=== PATIENT | female | born 1995 | race Caucasian/White ===

== ENCOUNTER 2024-12-18 00:59 | Emergency (ER) | payer OTHER ==
[2024-12-18] MEDS ORDERED: ROCURONIUM 50 MG/5 ML VIAL IV ONE (01:00)
[2024-12-18] MEDS ORDERED: ETOMIDATE 20 MG/10 ML VIAL IV ONE (01:00)
[2024-12-18] MEDS ORDERED: NA CHLORIDE 0.9% 1,000 ML IV ONE (01:00)
[2024-12-18] MEDS ORDERED: Calcium Chloride 10% INJ SYR IV ONE (01:00)
[2024-12-18] MEDS ORDERED: NOREPINEPHRINE BITARTRATE/D5W 4 MG/250 ML BAG IV ONE ×5 (01:07→11:57)
[2024-12-18] MEDS ORDERED: ALBUMIN HUMAN 25% 200 ML IV ONE (01:17)
[2024-12-18] MEDS ORDERED: ACETAMINOPHEN 650MG/RECT SUPP PR ONE (01:22)
[2024-12-18] MEDS ORDERED: ACETAMINOPHEN 325 MG/SUPP PR ONE (01:23)
[2024-12-18 01:49] LABS: Absolute Lymphocytes (CBC) 0.9 K/uL (0.7-4.9); Hematocrit 25.7 % (36.0-45.0); Hemoglobin 8.8 g/dL (12.0-15.0); MCH 30.7 pg (27.0-35.0); MCHC 34.3 g/dL (32.0-36.0); MCV 89.6 fL (80-100); MPV 7.3 fL (7.6-11.3); Nucleated RBC Absolute Count 0.0 (0-0); Nucleated Red Blood Cells % 0.3 % (0-0); PT Prothrombin Time 14.6 SECONDS (10-13.0); Protime INR 1.3; RBC Red Blood Cell Count 2.86 M/uL (3.86-4.86); White Blood Count 3.00 thou/uL (4.3-10.9)
[2024-12-18 01:54] LABS: Influenza A Ag Negative; Influenza B Ag Negative
[2024-12-18 01:55] LABS: SARS-CoV-2 Antigen Rapid Res Negative (Negative)
[2024-12-18 02:06] LABS: ALT/SGPT 23 U/L (13-56); AST/SGOT 18 U/L (15-37); Albumin 3.3 g/dL (3.4-5.0); Albumin/Globulin Ratio 0.9 (1.1-1.8); Alkaline Phosphatase 130 U/L (45-117); Anion Gap 15.4 mEq/L (5.0-15.0); BUN Blood Urea Nitrogen 52 mg/dL (7-18); Globulin 3.7 g/dL (2.3-3.5); Glucose Level 149 mg/dL (74-106); Magnesium 1.4 mg/dL (1.6-2.4); NT PRO-BNP 1298 pg/mL (<125); Potassium 3.4 mEq/L (3.5-5.1); Troponin High Sensitivity 20.9 pg/mL (<58.9)
[2024-12-18 02:07] LABS: Bilirubin Indirect, Calculated 0.1 mg/dL (0.2-0.8)
[2024-12-18 02:09] LABS: Lipase 56 U/L (13-75); Thyroid Stimulating Hormone 2.130 uIU/mL (0.358-3.740)
[2024-12-18] MEDS ORDERED: VANCOMYCIN 1 GM/VIAL ONE (02:09)
[2024-12-18] MEDS ORDERED: ONDANSETRON 4 MG/2 ML VIAL ONE (02:09)
[2024-12-18] MEDS ORDERED: NA CHLORIDE 0.9% 500 ML ONE (02:09)
[2024-12-18] MEDS ORDERED: NA CHLORIDE 0.9% 100 ML ONE (02:09)
[2024-12-18] MEDS ORDERED: CEFAZOLIN SODIUM 2 GM/VIAL ONE (02:10)
[2024-12-18 02:15] LABS: HCG, Quantitative 7 mIU/mL (1-3)
[2024-12-18 02:24] LABS: Arterial Blood Carboxyhemoglob 0.3 % (0.0-1.5); Blood Gas Inspired Oxygen 50.0 %; Blood Gas Oxyhemoglobin 98.3 % (94.0-97.0); Blood O2 Saturation 99.7 % (92.0-98.5)
[2024-12-18] MEDS ORDERED: METOPROLOL TARTRATE 5 MG/5 ML INJ IV ONE (02:30)
[2024-12-18] MEDS ORDERED: SCOPOLAMINE HYDROBROMIDE PATCH TD ONE (02:31)
[2024-12-18] MEDS ORDERED: MIDAZOLAM HCL 5 ML ONE (02:50)
[2024-12-18] MEDS ORDERED: MIDAZOLAM HCL IN 0.9 % NACL/PF 100 MG/100 ML BAG IVPB ONE (02:54)
--- NOTE | 2024-12-18 03:06 | RAD REPORT ---
INDICATION: AMS COMPARISON: No existing relevant imaging studies are available TECHNIQUE: Unenhanced CT of the chest, abdomen, and pelvis was performed per protocol. Multiplanar reconstructio ns were provided. Dose reduction techniques were utilized for this exam including automated exposure control, adjustmen ts to mA and/or kV according to patient's size, and the use of iterative reconstruction techniques. FINDINGS: Lack of intravenous contrast limits evaluation of the viscera and vasculature. CHEST: SUPPORT DEVICES: Endotracheal tube terminates above the tom. Enteric tube terminates within the st omach. Right-sided central venous catheter terminates within the upper right atrium. HEART: Normal in size. No coronary arterial calcifications. No pericardial effusion or thickening. AORTA: Thoracic aorta normal in course and caliber. ADENOPATHY: No pathologic intrathoracic or axillary adenopathy. LUNGS: Bilateral lower lobe dependent atelectasis. Lungs otherwise grossly clear. No large pleural ef fusion or pneumothorax. ABDOMEN / PELVIS: LIVER: Unremarkable. SPLEEN: Enlarged measuring up to 14 cm. PANCREAS: Unremarkable. ADRENALS: Unremarkable. KIDNEYS: Bilateral renal cortical atrophy. No hydronephrosis. GALLBLADDER: Surgically absent. VESSELS: Aortoiliac system normal in course and caliber. BOWEL: Submucosal fatty infiltration of the ascending colon, nonspecific although can be seen with ch ronic inflammation. Moderate amount of stool throughout the remaining colon. No bowel obstruction. APPENDIX: Normal. FLUID: No free fluid or abnormal fluid collection. ADENOPATHY: No pathologic adenopathy. BLADDER: Decompressed around a Dinh catheter bulb. PELVIS: Uterus and adnexa are unremarkable. BONES: No acute bony abnormality. SOFT TISSUES: Unremarkable. IMPRESSION: 1. No acute findings within the chest, abdomen or pelvis. 2. Splenomegaly. 3. Bilateral renal atrophy. Electronically signed by: Medardo Dorsey DO 12/18/2024 02:22 AM CDT NR Due to temporary technical issues with the PACS[employer] reporting system, reports are being gris d by the in-house radiologist without review as a courtesy to ensure prompt reporting the interpreting radiologist is fully responsible for the content of the report. Transcribed Date/Time: 12/18/2024 3:06 AM
--- NOTE | 2024-12-18 03:06 | RAD REPORT ---
INDICATION: CONFUSED COMPARISON: No existing relevant imaging studies are available TECHNIQUE: Unenhanced CT of the head was performed per protocol. Dose reduction techniques were utilized for this exam including automated exposure control, adjustmen ts to mA and/or kV according to patient's size, and the use of iterative reconstruction techniques. FINDINGS: ACUTE INFARCTION: No. HEMORRHAGE: No. MASS: No. BRAIN: Huang-white matter differentiation is maintained. VENTRICLES / EXTRA-AXIAL SPACES: No hydrocephalus. BONES: Unremarkable. PARANASAL SINUSES: Mild mucosal thickening within the ethmoid sinuses. IMPRESSION: No acute intracranial abnormality. Electronically signed by: Medardo Dorsey DO 12/18/2024 02:22 AM CDT RP NR Due to temporary technical issues with the PACS/[employer] reporting system, reports are being gris d by the in-house radiologist without review as a courtesy to ensure prompt reporting the interpreting radiologist is fully responsible for the content of the report. Transcribed Date/Time: 12/18/2024 3:06 AM
[2024-12-18] MEDS ORDERED: LIDOCAINE 1% 20 ML MDV ONE (04:04)
[2024-12-18 04:25] LABS: METHAMPHETAM NEGATIVE (NEGATIVE); Sqamous Epithelial 20-50 /HPF (None Seen); THC Cannibis NEGATIVE (NEGATIVE); Urine Micro Reflex YN NO BILL MICROSCOPIC; Urine WBC Clump Rare /HPF (None Seen)
[2024-12-18 05:27] LABS: Color of Supernate Not Xanthochromic (Not Xantho); Color of fluid Colorless (COLORLESS)
[2024-12-18 05:29] VITALS: O2SAT 100
[2024-12-18 05:33] LABS: Fluid Total Cells Count ND
[2024-12-18 06:00] LABS: Color of Supernate Not Xanthochromic (Not Xantho); Color of fluid Colorless (COLORLESS); Fluid Total Volume 8 ml
--- NOTE | 2024-12-18 06:04 | ER ---
Nurse's Notes [facility] Name: Elgin Mae Age: 29 yrs Sex: Female : 1995 Arrival Date: 12/18/2024 Time: 00:59 Bed 3 Private MD: Diagnosis: Fever, sepsis, altered mental status, respiratory distress, generalized weakness, lactic acidosis Presentation: 12/18 01:00 Chief complaint: EMS states: ESRD with at home hemodialysis. unknown date of last lg3 treatment. pt combative on EMS arrival to scene. pt began vomiting and became unresponsive. 2mg IN Narcan administered with no change. Coronavirus screen: At this time, unable to obtain information related to travel outside the [place] Ebola Screen: No symptoms or risks identified at this time. Initial Sepsis Screen: Does the patient meet any 2 criteria? RR > 20 per min. Temp <36.0*C (96.8*F)) or > 38.3*C (100.9*F). Altered Mental Status. HR > 90 bpm. Yes Does the patient have a suspected source of infection? No. Patient's initial sepsis screen is negative. Risk Assessment: Do you want to hurt yourself or someone else? Unable to obtain. Onset of symptoms is unknown. 01:00 Method Of Arrival: EMS: [facility] lg3 01:00 Acuity: KENDRA 1 lg3 Triage Assessment: 01:00 General: Appears distressed, Behavior is unresponsive. Pain: Unable to use pain scale. lg3 Patient is unresponsive. EENT: No deficits noted. Neuro: Oneil Agitation-Sedation Scale (RASS): -5 Unarousable Level of Consciousness is unresponsive. Cardiovascular: Capillary refill < 3 seconds Clubbing of nail beds is absent JVD is present Patient's skin is warm and dry. Rhythm is sinus tachycardia. Respiratory: Respiratory effort is shallow, weak, Respiratory pattern is tachypnea Breath sounds are clear bilaterally. GI: Abdomen is round non-distended, Pt is actively vomiting bile. : No deficits noted. Derm: Skin is intact, is healthy with good turgor, Skin is dry, Skin is pale, Skin temperature is hot. Musculoskeletal: No deficits noted. 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 - Infectious Disease History:: Denies. - Social history:: Smoking status: unknown. - Family history:: not pertinent. Screenin:00 [facility] ED Fall Risk Assessment (Adult) History of falling in the last 3 months, lg3 including since admission No falls in past 3 months (0 pts) Confusion or Disorientation Yes (5 pts) Intoxicated or Sedated No (0 pts) Impaired Gait No (0 pts) Mobility Assist Device Used No (0 pt) Altered Elimination No (0 pt) Score/Fall Risk Level 3 or more points = High Risk Oriented to surroundings, Maintained a safe environment, Educated pt \T\ family on fall prevention, incl call for assistance when getting out of bed, Assessed \T\ reinforced patient's understanding of fall precautions. Abuse screen: Denies threats or abuse. Denies injuries from another. Nutritional screening: No deficits noted. Tuberculosis screening: No symptoms or risk factors identified. Assessment: 01:00 General: see triage assessment. lg3 03:00 General: per significant other, PT recently traveled to [place] for medical . lg3 provider notified. 03:28 General: Appears in no apparent distress. Neuro: Oneil Agitation-Sedation Scale lg3 (RASS): -5 Unarousable Level of Consciousness is unresponsive. Respiratory: Ventilator assessment: ET Tube: 7.5 HOB > 30 degrees. Oral care provided. Suction provided. 04:54 Reassessment: Patient appears in no apparent distress at this time. No changes from lg3 previously documented assessment. Patient and/or family updated on plan of care and expected duration. Pain level reassessed. 06:24 Reassessment: Patient appears in no apparent distress at this time. No changes from lg3 previously documented assessment. Patient and/or family updated on plan of care and expected duration. Pain level reassessed. 07:12 General: Appears in no apparent distress. Behavior is unresponsive. Neuro: Level of ap3 Consciousness is unresponsive. Respiratory: Airway via oral intubation. 08:45 Reassessment: Dr. Omer at bedside. ap3 10:48 Reassessment: Pt moving both arms and bucking ventilator, see MAR for med given. Dr. marilyn Mata (nephrology at bedside).. 11:40 General: Appears in no apparent distress. comfortable, Behavior is unresponsive. Neuro: ap3 Level of Consciousness is unresponsive. Respiratory: Airway via oral intubation. 18:51 Reassessment: Preliminary blood culture reports gram neg rods in all 4 bottles. Judith erwin at [facility] ICU notified, reports faxed to [phone]. Vital Signs: 01:00 BP 98 / 65; Pulse 166; Resp 21 S; Temp 104.4(A); Pulse Ox 96% on R/A; Height 5 ft. 6 lg3 in. ; 01:37 Weight 74.84 kg; ha1 02:30 BP 113 / 61; Pulse 130; Resp 17; Temp 102.1(Ca); Pulse Ox 100% on ETT vent; lg3 03:00 BP 85 / 43; Pulse 104; Resp 20 A; Temp 101.2(Ca); Pulse Ox 100% on ETT vent; lg3 03:30 BP 74 / 42; Pulse 95; Resp 20 A; Temp 101.3; Pulse Ox 100% on ETT vent; lg3 03:45 BP 124 / 87; Pulse 100; Resp 19 A; Temp 101.4(Ca); Pulse Ox 100% on ETT vent; lg3 04:05 BP 127 / 86; Pulse 99; Resp 20 A; Temp 100.8(Ca); Pulse Ox 100% on ETT vent; lg3 04:30 BP 114 / 82; Pulse 99; Resp 20 A; Temp 100.8(Ca); Pulse Ox 100% on ETT vent; lg3 05:00 BP 122 / 79; Pulse 93; Resp 17 A; Temp 100.8(Ca); Pulse Ox 100% on ETT vent; lg3 05:30 BP 129 / 82; Pulse 93; Resp 17 A; Temp 100.8(Ca); Pulse Ox 100% on ETT vent; lg3 06:00 BP 133 / 83; Pulse 93; Resp 16 A; Temp 100.7(Ca); Pulse Ox 100% on ETT vent; lg3 06:30 BP 128 / 78; Pulse 93; Resp 16 A; Temp 100.7(Ca); Pulse Ox 100% on ETT vent; lg3 07:13 BP 116 / 73; Pulse 96; Resp 16; Temp 100.8(Ca); Pulse Ox 100% on ETT vent; ap3 07:42 BP 117 / 75; Pulse 95; Resp 16; Temp 100.8(Ca); Pulse Ox 100% on ETT vent; ap3 08:20 BP 124 / 82; Pulse 92; Resp 16 A; Pulse Ox 100% on ETT vent; ap3 08:58 BP 108 / 73; Pulse 89; Resp 16 A; Pulse Ox 100% on ETT vent; ap3 09:20 BP 112 / 75; Pulse 87; Resp 16 A; Temp 100.7(Ca); Pulse Ox 100% on ETT vent; ap3 09:40 BP 117 / 80; Pulse 86; Resp 16 A; Pulse Ox 100% on ETT vent; ap3 09:47 BP 119 / 82; Pulse 88; Resp 16 A; Pulse Ox 100% on ETT vent; ap3 09:55 BP 100 / 64; Pulse 90; Resp 16 A; Pulse Ox 100% on ETT vent; ap3 10:34 BP 101 / 69; Pulse 86; Resp 16 A; Pulse Ox 100% on ETT vent; ap3 11:05 BP 104 / 71; Pulse 85; Resp 16 A; Pulse Ox 100% on ETT vent; ap3 11:39 BP 112 / 72; Pulse 86; Resp 16 A; Temp 100.7(Ca); Pulse Ox 100% on ETT vent; ap3 12:05 BP 116 / 76; Pulse 86; Resp 16 A; Temp 100.5(Ca); Pulse Ox 100% on ETT vent; ap3 12:35 BP 119 / 77; Pulse 85; Resp 16 A; Pulse Ox 100% on ETT vent; ap3 12:55 BP 121 / 78; Pulse 83; Resp 16 A; Pulse Ox 100% on ETT vent; ap3 13:15 BP 129 / 90; Pulse 93; Resp 16 A; Pulse Ox 100% on ETT vent; ap3 [place] Coma Score: 03:43 Eye Response: spontaneous(4). Motor Response: localizes pain(5). Verbal Response: sp4 incomprehensible(2). Total: 11. ED Course: 01:00 Arm band placed on right wrist. lg3 01:00 Patient has correct armband on for positive identification. Placed in gown. Bed in low lg3 position. Call light in reach. Side rails up X2. Client placed on continuous cardiac and pulse oximetry monitoring. NIBP monitoring applied. monitoring analyst on. 01:00 One-on-one care X 45 minutes. lg3 01:00 Inserted saline lock: 20 gauge in left antecubital area, using aseptic technique. Blood lg3 collected. Flushed with 10 mL NS. 01:00 Inserted saline lock: 18 gauge in right antecubital area, using aseptic technique. lg3 Blood collected. Flushed with 10 mL NS. 01:02 Patient arrived in ED. vk 01:14 Assisted provider with intubation using 7.5 mm ETT via oral route. ET tube secured at lg3 22cm at the teeth. Set up intubation tray. Intubated by Dutch Trinidad MD Placement verified by CO2 detector w/ + color change, auscultating bilateral breath sounds, CXR, Patient tolerated well. Dinh cath inserted, using sterile technique, 16 Fr., by research animal attendant, balloon inflated, to gravity drainage, 16Fr. OG tube placed. verified by return of gastric contents and CXR. 01:15 Dutch Trinidad MD is Attending Physician. sp4 01:36 Telma Kaur, LASHAUN is Primary Nurse. lg3 01:43 Triage completed. lg3 01:48 Abdomen 1 View (KUB) In Process Unspecified. EDMS 01:49 XRAY Chest (1 view) In Process Unspecified. EDMS 01:52 ABG Sent. lg3 01:52 Salicylate Sent. lg3 01:52 Acetaminophen Sent. lg3 01:52 Alcohol Level Sent. lg3 01:52 T4 Free Sent. lg3 01:52 TSH Sent. lg3 01:52 Lipase Sent. lg3 01:52 COVID-19 Ag + Flu A+B Ag Sent. lg3 01:52 COVID-19 Ag + Flu A+B Ag Sent. lg3 01:52 CK Sent. lg3 01:52 Lactate w/ 2H reflex if indic. Sent. lg3 01:52 Blood Culture Adult (2) Sent. lg3 01:54 Basic Metabolic Panel Sent. lg3 01:54 CBC with Diff Sent. lg3 01:54 LFT's Sent. lg3 01:54 Magnesium Sent. lg3 01:54 NT PRO-BNP Sent. lg3 01:54 Troponin HS Sent. lg3 02:06 CT Head Brain wo Cont In Process Unspecified. EDMS 02:06 CT Chest Abdomen Pelvis W/O Contrast In Process Unspecified. EDMS 02:15 One-on-one care X 45 minutes. lg3 02:15 Cleaned of incontinence. Linen changed. lg3 03:20 Assisted provider with central line placement. Set up central line tray. Triple lumen lg3 line placed in left internal jugular. Line placed by Dutch Trinidad MD Placement verified by CXR, blood return, Blood was collected. Patient tolerated well. Before procedure, did Practitioner(s) obtain informed consent? Yes. Patient \T\ family education about procedure, CLABSI prevention and S/S of infection? Yes. Time-out/Briefing performed prior to start of procedure? Yes. Was handwashing/sanitizing done immediately prior to procedure? Yes. Was patient positioned to in a way to prevent air embolism? Yes. Was procedure site sterilized? Yes, with chlorhexidine. Was the site allowed to dry? Yes. Was local anesthetic and/or sedation utilized? Yes. During the procedure, did the Practitioner(s) maintain a sterile field? Yes. Were unused ports clamped during insertion? Yes. Was a 2nd qualified MD obtained after 3 unsuccessful insertion attempts? No. Was blood aspirated from each lumen? Yes. After the procedure, did the Practitioner(s) clean the site and apply a sterile dressing? Yes. 03:21 One-on-one care X 30 minutes. lg3 03:49 Chest Single View XRAY In Process Unspecified. EDMS 04:16 Assist provider with lumbar puncture: Set up LP tray. Performed by Dutch Trinidad MD lg3 CSF is clear. Procedure was successful. Patient tolerated well. 04:17 One-on-one care X 30 minutes. lg3 04:17 Cleaned of incontinence. Linen changed. lg3 06:02 Kam Omer MD is Hospitalizing Provider. sp4 07:11 US Pelvis Complete In Process Unspecified. EDMS 08:45 Provided Education on: education given to family at bedside on medications. ap3 11:14 initiated a transfer with Noah from the [facility]. eb 11:23 Attending Physician role handed off by Dutch Trinidad MD sp3 11:23 Nathalie Lyons MD is Attending Physician. sp3 12:[address] Little the locomotive crane engineer registered radiation therapist for [facility] with Dr. Lyons for eb patient transfer consultation. 12:18 administrative approval given by Noah Carter Rn/ patient has been accepted to [facility] ICU bed 209/ Dr. Shay Little has accepted the patient in transfer/ report to be called to [phone]. 13:34 Patient transferred, IV remains in place. ap3 Administered Medications: 01:12 Drug: Etomidate IVP 20 mg IVP once Route: IVP; Site: left antecubital; lg3 02:37 Follow up: Response: No adverse reaction; RASS: Unarousable (-5) lg3 01:12 Drug: Calcium Chloride IVP 1 grams IVP once Route: IVP; Site: left antecubital; lg3 02:37 Follow up: Response: No adverse reaction lg3 01:12 Drug: Sodium Bicarbonate IVP 1 amp IVP once; (50 mL); equals 50 mEq Route: IVP; Site: lg3 left antecubital; 02:36 Follow up: Response: No adverse reaction lg3 01:13 Drug: Rocuronium IVP 100 mg IVP once Route: IVP; Site: left antecubital; lg3 02:37 Follow up: Response: No adverse reaction; RASS: Unarousable (-5) lg3 01:13 Drug: Calcium Chloride IVP 1 grams IVP once Route: IVP; Site: right antecubital; lg3 02:37 Follow up: Response: No adverse reaction lg3 01:13 Drug: Sodium Bicarbonate IVP 50 mEq IVP once Route: IVP; Site: right antecubital; lg3 02:36 Follow up: Response: No adverse reaction lg3 01:36 Drug: Acetaminophen IN Suppository 650 mg IN once Route: IN; vc1 03:28 Follow up: Response: No adverse reaction; Marked relief of symptoms; Temperature is lg3 decreased 01:36 Drug: Acetaminophen IN Suppository 325 mg IN once Route: IN; vc1 03:28 Follow up: Response: No adverse reaction lg3 01:54 Drug: Propofol IV 5 mcg/kg/min IV at calculated rate See Administration Instructions; lg3 Standard concentration 1000 mg / 100 mL; Recommended max rate 50 mcg/kg/min; Titrate 5 mcg/kg/min every 5 minutes to achieve goal (see titration policy); Goal parameter RASS score 0 to -2 Route: IV; Rate: calculated rate; Site: left antecubital; 08:22 Follow up: Rate change 18 mcg/kg/min; dr omer made rate change from 20mcg/kg/min to ap3 18mcg/kg/min when at bedside 13:37 Follow up: IV Status: Infusion continued upon transfer ap3 01:55 Drug: NS 0.9% IV 1000 ml IV at 125 ml/hr once; to be given at 125 ml / hour Route: IV; lg3 Rate: 125 ml/hr; Site: right antecubital; 13:36 Follow up: IV Status: Completed infusion; IV Intake: 1000ml ap3 02:08 Drug: Albumin IVPB 50 grams 100 ml IVPB once; (Note: Albumin 25% concentration) Volume: lg3 100 ml; Route: IVPB; Site: right antecubital; 02:36 Follow up: Response: No adverse reaction; IV Status: Completed infusion; IV Intake: lg3 100ml 02:14 Drug: Ondansetron IVP 4 mg IVP once; over 2 minutes Route: IVP; Site: right antecubital;lg3 02:37 Follow up: Response: No adverse reaction lg3 02:35 Drug: Metoprolol IVP 5 mg IVP once; Hold for SBP <100 or HR <60. Route: IVP; Site: lg3 right antecubital; 03:27 Follow up: Response: No adverse reaction; Marked relief of symptoms lg3 02:36 Drug: Cefepime IVPB 2 grams IVPB at 200 ml/hr once over 30 mins; (mix in NS 100 mL) lg3 Route: IVPB; Rate: 200 ml/hr; Infused Over: 30 mins; Site: right antecubital; 02:53 Follow up: Response: No adverse reaction; IV Status: Completed infusion; IV Intake: lg3 100ml 02:52 Drug: Midazolam IVP or IV 5 mg IVP once Route: IVP; Site: right antecubital; lg3 03:27 Follow up: Response: No adverse reaction lg3 03:15 Drug: vancoMYCIN IVPB 2 grams IVPB at calculated rate once Route: IVPB; Rate: lg3 calculated rate; Site: left antecubital; 05:15 Follow up: Response: No adverse reaction; IV Status: Completed infusion; IV Intake: lg3 500ml 03:18 Drug: Midazolam IVP or IV 0.01 mg/kg/h IV at ml/hr See Administration Instructions; lg3 (Standard concentration: 100 mg / 100 mL NS); Recommended max rate 0.1 mg/kg/hr; Titrate 0.01 mg/kg/hr as often as every 30 minutes to achieve goal (see titration policy); Goal parameter RASS 0 to -2 Route: IV; Rate: ml/hr; Site: right antecubital; 13:36 Follow up: IV Status: Infusion continued upon transfer ap3 03:27 Drug: Midazolam IVP or IV 5 mg IVP once Route: IVP; Site: right antecubital; lg3 04:00 Follow up: Response: No adverse reaction lg3 03:40 Drug: Norepinephrine IV 0.1 mcg/kg/min IV at calculated rate See Administration lg3 Instructions; (Standard concentration 4 mg / 250 mL D5W); Recommended max rate 3 mcg/kg/min; Titrate 0.05 mcg/kg/min as often as every 5 minutes to achieve goal (see titration policy); Goal parameter MAP greater than 65 mmHg. Route: IV; Rate: calculated rate; Site: left jugular; 08:57 Follow up: Rate change 0.3 mcg/kg/min ap3 09:47 Follow up: BP 119 / 82; Pulse 88 bpm; Resp 16 bpm Assisted; Pulse Ox 100% FiO2 Vent; ap3 Rate change 0.2 mcg/kg/min 13:36 Follow up: IV Status: Infusion continued upon transfer ap3 03:40 Drug: NS 0.9% IV 500 ml 500 ml IV at 1 bolus once; to be given as a bolus over 30 lg3 minutes Volume: 500 ml; Route: IV; Rate: 1 bolus; Site: left jugular; 04:20 Follow up: Response: No adverse reaction; IV Status: Completed infusion; IV Intake: lg3 500ml 04:01 Drug: Midazolam IVP or IV 5 mg IVP once Route: IVP; Site: left jugular; lg3 04:17 Follow up: Response: No adverse reaction lg3 06:00 Drug: scopolamine Patch 1 patches Transdermal once Route: Transdermal; Site: affected lg3 area; 06:23 Follow up: Response: No adverse reaction; Marked relief of symptoms lg3 08:48 Drug: fentaNYL (PF) IVP 25 mcg IVP once; VO received at 0845 Route: IVP; Site: left ap3 jugular; 13:36 Follow up: Response: No adverse reaction; RASS: Moderate sedation (-3) ap3 10:48 Drug: fentaNYL (PF) IVP 25 mcg IVP once Route: IVP; Site: right antecubital; aa5 13:35 Follow up: Response: No adverse reaction; RASS: Moderate sedation (-3) ap3 11:28 Drug: Albumin IVPB 25 grams 100 ml IVPB once; (Note: Albumin 25% concentration) from ap3 Tidal orders Volume: 100 ml; Route: IVPB; Site: left antecubital; 12:30 Follow up: IV Status: Completed infusion ap3 Medication: 01:00 VIS not applicable for this client. lg3 Intake: 02:36 IV: 100ml; Total: 100ml. lg3 02:53 IV: 100ml; Total: 200ml. lg3 04:20 IV: 500ml; Total: 700ml. lg3 05:15 IV: 500ml; Total: 1200ml. lg3 13:36 IV: 1000ml; Total: 2200ml. ap3 Outcome: 06:03 Decision to Hospitalize by Provider. sp4 11:26 ER care complete, transfer ordered by . sp3 13:33 Transferred by ground EMS Note: [facility] via EMS ap3 13:33 Condition: stable 13:33 Discharge instructions given to family, significant other, Instructed on the need for transfer, Demonstrated understanding of 13:37 Patient left the ED. ap3 Signatures: Dispatcher [employer] EDMS Mari Prince RN RN aa5 Nahed Pizarro RN Marni Nielson RN RN ap3 Lien Roth Lacie, RN RN lg3 Nathalie Lyons MD MD sp3 Diana Broussard RN RN vc1 Silvana Brian RN RN haDutch Gramajo MD MD sp4 Keena Knott Corrections: (The following items were deleted from the chart) 03:25 02:28 BP 138 / 77; Pulse 130bpm; Resp 17bpm; Pulse Ox 100% ET / Ventilator; Temp 102.1F lg3 Catheter; lg3 03:53 03:45 BP 124 / 87; Pulse 100bpm; Resp 19bpm; Assisted; Temp 101.4F Catheter; lg3 lg3 05:15 04:17 One-on-one care X 30 minutes 3 3 05:17 05:16 To radiology for ARTERIAL BLOOD GAS. 3 3
--- NOTE | 2024-12-18 06:04 | EDPHYS ---
Physician Documentation [facility] Name: Elgin Mae Age: 29 yrs Sex: Female : 1995 Arrival Date: 12/18/2024 Time: 00:59 Bed 3 Private MD: ED Physician Nathalie Lyons HPI: 12/18 01:15 This 29 yrs old Female presents to ER via Unassigned with complaints of AMS. sp4 03:41 Patient is 29-year-old female with history of end-stage renal disease currently on home sp4 hemodialysis. Patient at home developed generalized weakness, near syncopal episode, and profuse vomiting. Patient on arrival is obtunded and profusely vomiting. Not able to obtain any HPI from the patient. Patient provided additional information. He states patient had in [place] 2 weeks ago. At this time patient is on home hemodialysis machine. Last hemodialysis was date unknown. Patient has history of 5 successful pregnancies. Patient has 5 kids at home. Patient's does not know her medications or any other pertinent medical history. 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 Patient on arrival is febrile at 104. Obtunded tachycardic and hypotensive. Patient had to be intubated for airway protection on arrival.. [employer] HELPER: 01:00 unknown, unknown lg3 Historical: - Allergies: 01:00 Unable to obtain; lg3 - Home Meds: 01:00 Unable to obtain [Active]; lg3 - PMHx: 01:00 End stage renal disease; lg3 - PSHx: 01:00 Unable to Obtain; lg3 - Immunization history:: Adult Immunizations unknown. - Infectious Disease History:: Denies. - Social history:: Smoking status: unknown. - Family history:: not pertinent. ROS: 03:42 Constitutional: Positive for fever, positive altered mental status, positive for sp4 vomiting. 03:42 All other systems are negative, 03:42 Unable to obtain ROS due to altered mental status, Exam: 03:43 Constitutional: This is a well developed, well nourished patient who febrile, sp4 tachycardic, hypotensive, and obtunded. Profusely vomiting on arrival. Head/Face: Normocephalic, atraumatic. Eyes: Pupils equal round and reactive to light, extra-ocular motions intact. Lids and lashes normal. Conjunctiva and sclera are not injected. ENT: Nares patent. No nasal discharge, no septal abnormalities noted. Tympanic membranes are normal and external auditory canals are clear. Oropharynx with no redness, swelling, or masses, exudates, or evidence of obstruction, uvula midline. Dry mucous membranes Neck: Trachea midline, no thyromegaly or masses palpated, and no cervical lymphadenopathy. Supple, full range of motion without nuchal rigidity, or vertebral point tenderness. Chest/axilla: Normal chest wall appearance and motion. Nontender with no deformity. No lesions are appreciated. Cardiovascular: Patient hypertensive on arrival tachycardic at 160. No gallops, murmurs, or rubs. No pulse deficits. Respiratory: Lungs have equal breath sounds bilaterally, clear to auscultation and percussion. No rales, rhonchi or wheezes noted. No increased work of breathing, no retractions or nasal flaring. Abdomen/GI: Soft, with normal bowel sounds. No distension or tympany. No guarding or rebound. No evidence of tenderness throughout. Back: No spinal tenderness. No costovertebral tenderness. Female : Normal external genitalia. Skin: Warm, dry with normal turgor. Normal color with no rashes, no lesions, and no evidence of cellulitis. MS/ Extremity: Pulses equal, no cyanosis. Intact peripheral pulses. Neuro: Patient on arrival nonverbal, profusely vomiting, lethargic. Able to move all extremities further exam is not possible 03:43 ECG was reviewed by the Attending Physician. EKG 0 116 sinus tachycardia rate 150 with short [place] otherwise unremarkable. 06:14 ECG was reviewed by the Attending Physician. Repeat EKG 0609 normal sinus rhythm rate sp4 [address] elevation or depression, normal intervals, no ectopy, normal axis. Vital Signs: 01:00 BP 98 / 65; Pulse 166; Resp 21 S; Temp 104.4(A); Pulse Ox 96% on R/A; Height 5 ft. 6 lg3 in. ; 01:37 Weight 74.84 kg; ha1 02:30 BP 113 / 61; Pulse 130; Resp 17; Temp 102.1(Ca); Pulse Ox 100% on ETT vent; lg3 03:00 BP 85 / 43; Pulse 104; Resp 20 A; Temp 101.2(Ca); Pulse Ox 100% on ETT vent; lg3 03:30 BP 74 / 42; Pulse 95; Resp 20 A; Temp 101.3; Pulse Ox 100% on ETT vent; lg3 03:45 BP 124 / 87; Pulse 100; Resp 19 A; Temp 101.4(Ca); Pulse Ox 100% on ETT vent; lg3 04:05 BP 127 / 86; Pulse 99; Resp 20 A; Temp 100.8(Ca); Pulse Ox 100% on ETT vent; lg3 04:30 BP 114 / 82; Pulse 99; Resp 20 A; Temp 100.8(Ca); Pulse Ox 100% on ETT vent; lg3 05:00 BP 122 / 79; Pulse 93; Resp 17 A; Temp 100.8(Ca); Pulse Ox 100% on ETT vent; lg3 05:30 BP 129 / 82; Pulse 93; Resp 17 A; Temp 100.8(Ca); Pulse Ox 100% on ETT vent; lg3 06:00 BP 133 / 83; Pulse 93; Resp 16 A; Temp 100.7(Ca); Pulse Ox 100% on ETT vent; lg3 06:30 BP 128 / 78; Pulse 93; Resp 16 A; Temp 100.7(Ca); Pulse Ox 100% on ETT vent; lg3 07:13 BP 116 / 73; Pulse 96; Resp 16; Temp 100.8(Ca); Pulse Ox 100% on ETT vent; ap3 07:42 BP 117 / 75; Pulse 95; Resp 16; Temp 100.8(Ca); Pulse Ox 100% on ETT vent; ap3 08:20 BP 124 / 82; Pulse 92; Resp 16 A; Pulse Ox 100% on ETT vent; ap3 08:58 BP 108 / 73; Pulse 89; Resp 16 A; Pulse Ox 100% on ETT vent; ap3 09:20 BP 112 / 75; Pulse 87; Resp 16 A; Temp 100.7(Ca); Pulse Ox 100% on ETT vent; ap3 09:40 BP 117 / 80; Pulse 86; Resp 16 A; Pulse Ox 100% on ETT vent; ap3 09:47 BP 119 / 82; Pulse 88; Resp 16 A; Pulse Ox 100% on ETT vent; ap3 09:55 BP 100 / 64; Pulse 90; Resp 16 A; Pulse Ox 100% on ETT vent; ap3 10:34 BP 101 / 69; Pulse 86; Resp 16 A; Pulse Ox 100% on ETT vent; ap3 11:05 BP 104 / 71; Pulse 85; Resp 16 A; Pulse Ox 100% on ETT vent; ap3 11:39 BP 112 / 72; Pulse 86; Resp 16 A; Temp 100.7(Ca); Pulse Ox 100% on ETT vent; ap3 12:05 BP 116 / 76; Pulse 86; Resp 16 A; Temp 100.5(Ca); Pulse Ox 100% on ETT vent; ap3 12:35 BP 119 / 77; Pulse 85; Resp 16 A; Pulse Ox 100% on ETT vent; ap3 12:55 BP 121 / 78; Pulse 83; Resp 16 A; Pulse Ox 100% on ETT vent; ap3 13:15 BP 129 / 90; Pulse 93; Resp 16 A; Pulse Ox 100% on ETT vent; ap3 [place] Coma Score: 03:43 Eye Response: spontaneous(4). Motor Response: localizes pain(5). Verbal Response: sp4 incomprehensible(2). Total: 11. Procedures: 02:05 Intubation: Ventilated with 100% NRB prior to procedure. O2 saturation prior to sp4 procedure was 100 %. Intubated orally using S4 glide scope assisted intubation with 7.5 mm ETT. was successful on first attempt. Ventilated with Ambu bag. ventilator. Tube secured with ETT francisco at center of mouth measured 21 cm at lip. Placement verified by CXR, CO2 detector with (+) color change, auscultating bilateral breath sounds, O2 saturation after procedure was 100 %. [place] scope assisted intubation. Patient tolerated well. 03:40 Central Line: the site was prepped with Betadine, in sterile fashion, a triple lumen sp4 catheter was inserted, in the left internal jugular vein, in 1 attempts. placement was verified, by CXR, by blood return, Ultrasound-guided central line, the site was dressed with 4X4s, Tegaderm, using sterile technique, the patient tolerated the procedure, well. 05:13 Lumbar Puncture: Patient placed in right lateral decubitus position. Prepped with sp4 Betadine. Draped using sterile technique. Collected 8 ml's of clear fluid. Sample sent to lab. Puncture site dressed with 4x4s, Tegaderm dressing. Patient tolerated well. 8 mL clear CSF collected and sent to the lab.. MDM: 01:20 Medical Screening Exam initiated sp4 02:52 ED course: INDICATION: CONFUSED COMPARISON: No existing relevant imaging studies are sp4 available TECHNIQUE: Unenhanced CT of the head was performed per protocol. Dose reduction techniques were utilized for this exam including automated exposure control, adjustments to mA and/or kV according to patient's size, and the use of iterative reconstruction techniques. FINDINGS: ACUTE INFARCTION: No. HEMORRHAGE: No. MASS: No. BRAIN: Huang-white matter differentiation is maintained. VENTRICLES / EXTRA-AXIAL SPACES: No hydrocephalus. BONES: Unremarkable. PARANASAL SINUSES: Mild mucosal thickening within the ethmoid sinuses. IMPRESSION: No acute intracranial abnormality. . ED course: INDICATION: AMS COMPARISON: No existing relevant imaging studies are available TECHNIQUE: Unenhanced CT of the chest, abdomen, and pelvis was performed per protocol. Multiplanar reconstructions were provided. Dose reduction techniques were utilized for this exam including automated exposure control, adjustments to mA and/or kV according to patient's size, and the use of iterative reconstruction techniques. FINDINGS: Lack of intravenous contrast limits evaluation of the viscera and vasculature. CHEST: SUPPORT DEVICES: Endotracheal tube terminates above the tom. Enteric tube terminates within the stomach. Right-sided central venous catheter terminates within the upper right atrium. HEART: Normal in size. No coronary arterial calcifications. No pericardial effusion or thickening. AORTA: Thoracic aorta normal in course and caliber. ADENOPATHY: No pathologic intrathoracic or axillary adenopathy. LUNGS: Bilateral lower lobe dependent atelectasis. Lungs otherwise grossly clear. No large pleural effusion or pneumothorax. ABDOMEN / PELVIS: LIVER: Unremarkable. SPLEEN: Enlarged measuring up to 14 cm. PANCREAS: Unremarkable. ADRENALS: Unremarkable. KIDNEYS: Bilateral renal cortical atrophy. No hydronephrosis. GALLBLADDER: Surgically absent. VESSELS: Aortoiliac system normal in course and caliber. BOWEL: Submucosal fatty infiltration of the ascending colon, nonspecific although can be seen with chronic inflammation. Moderate amount of stool throughout the remaining colon. No bowel obstruction. APPENDIX: Normal. FLUID: No free fluid or abnormal fluid collection. ADENOPATHY: No pathologic adenopathy. BLADDER: Decompressed around a Dinh catheter bulb. PELVIS: Uterus and adnexa are unremarkable. BONES: No acute bony abnormality. SOFT TISSUES: Unremarkable. IMPRESSION: 1. No acute findings within the chest, abdomen or pelvis. 2. Splenomegaly. 3. Bilateral renal atrophy. . 05:13 Differential Diagnosis: electrolyte abnormality, alcohol intoxication, hypoglycemia, sp4 intracranial bleed, meningitis, overdose, pneumonia, seizure, sepsis, volume depletion. Data reviewed: vital signs, nurses notes, EMS record, old medical records, lab test result(s), EKG, radiologic studies, CT scan, plain films. Consideration of Admission/Observation Patient was admitted/placed on observation. Escalation of care including admission/observation considered. 05:15 ED course: EXAM: XR Abdomen, 1 View CLINICAL HISTORY: The patient is 29 years old and sp4 is Female; OGTUBE TECHNIQUE: Frontal supine view of the abdomen/pelvis. COMPARISON: No relevant prior studies available. FINDINGS: Gastrointestinal tract: Unremarkable. No dilation. Bones/joints: Unremarkable. No acute fracture. Tubes, lines and devices: Nasogastric tube coursing below the diaphragm and overlying the upper abdomen. IMPRESSION: No acute findings.. ED course: EXAM: XR Chest, 1 View CLINICAL HISTORY: The patient is 29 years old and is Female; CHEST PAIN TECHNIQUE: Frontal view of the chest. COMPARISON: No relevant prior studies available. FINDINGS: Lungs: Mildly prominent interstitial markings. No consolidation. Pleural space: Unremarkable. No pneumothorax. Heart: Unremarkable. Mediastinum: Unremarkable. Normal mediastinal contour. Bones/joints: No acute findings. Tubes, lines and devices: Right central venous catheter with tip in the SVC. Nasogastric tube coursing below the diaphragm and overlying the left upper quadrant. Endotracheal tube with tip 3.7 cm above the tom. IMPRESSION: No acute findings in the chest. . 06:01 ED course: EXAMINATION: XR CHEST 1 VIEW INDICATION: 29 years old Female 1995 CVL sp4 left IJ. COMPARISON(S): XR Chest 12/18/2024 1:41:12 AM. TECHNIQUE: 1 view X-ray of the chest was performed. FINDINGS: Overlying defibrillator pads limit the exam. Support Devices: Continued intubation with stable endotracheal tube, nasogastric tube as well as tunneled hemodialysis catheter. New left IJ central venous catheter tip SVC in good location without pneumothorax. Heart: Cardiac silhouette is normal in size. Mediastinum: Mediastinal contours are normal. Lungs: Increased central vascularity. Summary lower volumes from previous examination. Vascular engorgement recognized. Osseous Structures: Visualized skeleton is normal. IMPRESSION: 1. Central vascular engorgement likely related to fluid overload in this patient on dialysis. Expected positions of endotracheal tube, central venous catheter and nasogastric tube as well as tunneled hemodialysis catheter. 06:15 ED course: Sepsis reevaluation completed. Patient was not given 30 mL/kg septic fluid sp4 bolus secondary to end-stage renal disease and volume overload. Patient was given total of 500 mL bolus and 125 mL/h maintenance. Patient is stable with Levophed infusion.. 07:18 ED course: Patient is awaiting on pelvic ultrasound to evaluate for products of sp4 conception. . 11:23 Transition of care: After a detail discussion of the patient's case, care is sp3 transferred to Nathalie Lyons MD. ED course: Patient signed out to me at 7 AM with probable transfer secondary to respiratory services not being available as well as potential retained products of conception. Ultrasound is negative. Upon further questioning the family, patient's procedure was only an oral tablet and was not actually an invasive procedure in [place]. So at this point it is unknown the source of her infection. Antibiotics are going in. Repeat lactate is normal. Internal medicine consult has been performed and patient is not ready for extubation as of yet. There is no respiratory therapist services available at this hospital this evening moving forward into the weekend and I have been informed by administration that patient will need to be transferred to our [facility] in [place] for ventilatory management. I have discussed all of this with the patient and informed him of the progress since morning. Transfer initiated and I will speak to the receiving physicians as well.. 12/18 01:15 Order name: Basic Metabolic Panel; Complete Time: 02:11 4 12/18 01:15 Order name: CBC with Diff; Complete Time: 02:03 4 12/18 01:15 Order name: LFT's; Complete Time: 02:11 4 12/18 01:15 Order name: Magnesium; Complete Time: 02:11 4 12/18 01:15 Order name: NT PRO-BNP; Complete Time: 02:11 4 12/18 01:15 Order name: PT-INR; Complete Time: 02:03 4 12/18 01:15 Order name: Troponin HS; Complete Time: 02:11 sp4 12/18 01:17 Order name: Blood Culture Adult (2) 4 12/18 01:17 Order name: Lactate w/ 2H reflex if indic.; Complete Time: 02:11 4 12/18 01:17 Order name: CK; Complete Time: 02:15 sp4 12/18 01:17 Order name: Test, Serum; Complete Time: 02:11 4 12/18 01:18 Order name: UA W/ Microscopic; Complete Time: 04:27 sp4 12/18 01:19 Order name: COVID-19 Ag + Flu A+B Ag; Complete Time: 02:03 cp 12/18 01:19 Order name: COVID-19 Ag + Flu A+B Ag 4 12/18 01:19 Order name: Lipase; Complete Time: 02:11 sp4 12/18 01:19 Order name: TSH; Complete Time: 02:11 12/18 01:19 Order name: T4 Free; Complete Time: 02:11 12/18 01:20 Order name: UDS; Complete Time: 04:27 12/18 01:20 Order name: Alcohol Level; Complete Time: 02:03 12/18 01:20 Order name: Acetaminophen; Complete Time: 02:11 12/18 01:20 Order name: Salicylate; Complete Time: 02:03 12/18 01:25 Order name: ABG; Complete Time: 02:32 12/18 02:13 Order name: Ghost Lactate-NO COLLECT Timer; Complete Time: 04:27 EDMS 12/18 02:15 Order name: HCG, Quantitative; Complete Time: 02:15 EDMS 12/18 04:23 Order name: Csf Culture; Complete Time: 06:07 4 12/18 04:23 Order name: Fluid Cell Count,Body; Complete Time: 05:51 sp4 12/18 04:23 Order name: Spinal Fluid Profile; Complete Time: 06:07 sp4 12/18 05:29 Order name: Lactate Sepsis 2 HR Follow-up; Complete Time: 05:51 EDMS 12/18 12:03 Order name: ABG sp3 12/18 01:15 Order name: XRAY Chest (1 view); Complete Time: 08:16 sp4 12/18 01:18 Order name: CT Head Brain wo Cont; Complete Time: 04:27 sp4 12/18 01:19 Order name: CT Chest Abdomen Pelvis W/O Contrast; Complete Time: 04:27 sp4 12/18 01:47 Order name: Abdomen 1 View (KUB); Complete Time: 08:16 EDMS 12/18 03:38 Order name: Chest Single View XRAY; Complete Time: 08:16 sp4 12/18 03:42 Order name: ARTERIAL BLOOD GAS EDMS 12/18 05:54 Order name: US Pelvis Complete; Complete Time: 11:27 sp4 12/18 01:15 Order name: EKG; Complete Time: 01:16 sp4 12/18 01:15 Order name: Cardiac monitoring; Complete Time: 01:53 sp4 12/18 01:15 Order name: EKG - Nurse/Tech; Complete Time: 01:53 sp4 12/18 01:15 Order name: IV Saline Lock; Complete Time: 01:53 sp4 12/18 01:15 Order name: Labs collected and sent; Complete Time: 01:53 sp4 12/18 01:15 Order name: O2 Per Protocol; Complete Time: 01:54 sp4 12/18 01:15 Order name: O2 Sat Monitoring; Complete Time: 01:54 sp4 12/18 01:17 Order name: Dinh; Complete Time: 01:52 sp4 12/18 01:19 Order name: Intubation Setup; Complete Time: 01:55 sp4 12/18 03:39 Order name: Central Line Dressing Kit; Complete Time: 03:50 sp4 12/18 03:39 Order name: Central Line Kit; Complete Time: 03:50 sp4 12/18 03:39 Order name: Chlorhexidine prep; Complete Time: 03:50 sp4 12/18 03:39 Order name: Consent for central line completed; Complete Time: 03:50 sp4 12/18 03:39 Order name: Line Caps x3; Complete Time: 03:50 sp4 12/18 03:39 Order name: NS Flushes x3; Complete Time: 03:50 sp4 12/18 03:39 Order name: Sterile Gloves; Complete Time: 03:50 sp4 12/18 03:39 Order name: Sterile Probe Cover; Complete Time: 03:50 sp4 12/18 03:40 Order name: Lumbar Puncture Setup; Complete Time: 03:59 sp4 12/18 03:40 Order name: Lumbar Puncture Consent; Complete Time: 03:59 sp4 12/18 04:23 Order name: LP Consents; Complete Time: 04:51 sp4 12/18 04:23 Order name: LP Setup; Complete Time: 04:51 sp4 EC:16 Rate is 150 beats/min. Rhythm is regular, Sinus tachycardia. QRS [place] is Normal. [place] sp4 interval is shortened. QRS interval is normal. QT interval is normal. No Q waves. T waves are Normal. No ST changes noted. Clinical impression: No evidence of ischemia. Interpreted by me. Reviewed by me. Administered Medications: 01:12 Drug: Etomidate IVP 20 mg IVP once Route: IVP; Site: left antecubital; lg3 02:37 Follow up: Response: No adverse reaction; RASS: Unarousable (-5) lg3 01:12 Drug: Calcium Chloride IVP 1 grams IVP once Route: IVP; Site: left antecubital; lg3 02:37 Follow up: Response: No adverse reaction lg3 01:12 Drug: Sodium Bicarbonate IVP 1 amp IVP once; (50 mL); equals 50 mEq Route: IVP; Site: lg3 left antecubital; 02:36 Follow up: Response: No adverse reaction lg3 01:13 Drug: Rocuronium IVP 100 mg IVP once Route: IVP; Site: left antecubital; lg3 02:37 Follow up: Response: No adverse reaction; RASS: Unarousable (-5) lg3 01:13 Drug: Calcium Chloride IVP 1 grams IVP once Route: IVP; Site: right antecubital; lg3 02:37 Follow up: Response: No adverse reaction lg3 01:13 Drug: Sodium Bicarbonate IVP 50 mEq IVP once Route: IVP; Site: right antecubital; lg3 02:36 Follow up: Response: No adverse reaction lg3 01:36 Drug: Acetaminophen [place] Suppository 650 mg [place] once Route: [place]; vc1 03:28 Follow up: Response: No adverse reaction; Marked relief of symptoms; Temperature is lg3 decreased 01:36 Drug: Acetaminophen [place] Suppository 325 mg [place] once Route: [place]; vc1 03:28 Follow up: Response: No adverse reaction lg3 01:54 Drug: Propofol IV 5 mcg/kg/min IV at calculated rate See Administration Instructions; lg3 Standard concentration 1000 mg / 100 mL; Recommended max rate 50 mcg/kg/min; Titrate 5 mcg/kg/min every 5 minutes to achieve goal (see titration policy); Goal parameter RASS score 0 to -2 Route: IV; Rate: calculated rate; Site: left antecubital; 08:22 Follow up: Rate change 18 mcg/kg/min; dr jackson made rate change from 20mcg/kg/min to ap3 18mcg/kg/min when at bedside 13:37 Follow up: IV Status: Infusion continued upon transfer ap3 01:55 Drug: NS 0.9% IV 1000 ml IV at 125 ml/hr once; to be given at 125 ml / hour Route: IV; lg3 Rate: 125 ml/hr; Site: right antecubital; 13:36 Follow up: IV Status: Completed infusion; IV Intake: 1000ml ap3 02:08 Drug: Albumin IVPB 50 grams 100 ml IVPB once; (Note: Albumin 25% concentration) Volume: lg3 100 ml; Route: IVPB; Site: right antecubital; 02:36 Follow up: Response: No adverse reaction; IV Status: Completed infusion; IV Intake: lg3 100ml 02:14 Drug: Ondansetron IVP 4 mg IVP once; over 2 minutes Route: IVP; Site: right antecubital;lg3 02:37 Follow up: Response: No adverse reaction lg3 02:35 Drug: Metoprolol IVP 5 mg IVP once; Hold for SBP <100 or HR <60. Route: IVP; Site: lg3 right antecubital; 03:27 Follow up: Response: No adverse reaction; Marked relief of symptoms lg3 02:36 Drug: Cefepime IVPB 2 grams IVPB at 200 ml/hr once over 30 mins; (mix in NS 100 mL) lg3 Route: IVPB; Rate: 200 ml/hr; Infused Over: 30 mins; Site: right antecubital; 02:53 Follow up: Response: No adverse reaction; IV Status: Completed infusion; IV Intake: lg3 100ml 02:52 Drug: Midazolam IVP or IV 5 mg IVP once Route: IVP; Site: right antecubital; lg3 03:27 Follow up: Response: No adverse reaction lg3 03:15 Drug: vancoMYCIN IVPB 2 grams IVPB at calculated rate once Route: IVPB; Rate: lg3 calculated rate; Site: left antecubital; 05:15 Follow up: Response: No adverse reaction; IV Status: Completed infusion; IV Intake: lg3 500ml 03:18 Drug: Midazolam IVP or IV 0.01 mg/kg/h IV at ml/hr See Administration Instructions; lg3 (Standard concentration: 100 mg / 100 mL NS); Recommended max rate 0.1 mg/kg/hr; Titrate 0.01 mg/kg/hr as often as every 30 minutes to achieve goal (see titration policy); Goal parameter RASS 0 to -2 Route: IV; Rate: ml/hr; Site: right antecubital; 13:36 Follow up: IV Status: Infusion continued upon transfer ap3 03:27 Drug: Midazolam IVP or IV 5 mg IVP once Route: IVP; Site: right antecubital; lg3 04:00 Follow up: Response: No adverse reaction lg3 03:40 Drug: Norepinephrine IV 0.1 mcg/kg/min IV at calculated rate See Administration lg3 Instructions; (Standard concentration 4 mg / 250 mL D5W); Recommended max rate 3 mcg/kg/min; Titrate 0.05 mcg/kg/min as often as every 5 minutes to achieve goal (see titration policy); Goal parameter MAP greater than 65 mmHg. Route: IV; Rate: calculated rate; Site: left jugular; 08:57 Follow up: Rate change 0.3 mcg/kg/min ap3 09:47 Follow up: BP 119 / 82; Pulse 88 bpm; Resp 16 bpm Assisted; Pulse Ox 100% FiO2 Vent; ap3 Rate change 0.2 mcg/kg/min 13:36 Follow up: IV Status: Infusion continued upon transfer ap3 03:40 Drug: NS 0.9% IV 500 ml 500 ml IV at 1 bolus once; to be given as a bolus over 30 lg3 minutes Volume: 500 ml; Route: IV; Rate: 1 bolus; Site: left jugular; 04:20 Follow up: Response: No adverse reaction; IV Status: Completed infusion; IV Intake: lg3 500ml 04:01 Drug: Midazolam IVP or IV 5 mg IVP once Route: IVP; Site: left jugular; lg3 04:17 Follow up: Response: No adverse reaction lg3 06:00 Drug: scopolamine Patch 1 patches Transdermal once Route: Transdermal; Site: affected lg3 area; 06:23 Follow up: Response: No adverse reaction; Marked relief of symptoms lg3 08:48 Drug: fentaNYL (PF) IVP 25 mcg IVP once; VO received at 0845 Route: IVP; Site: left ap3 jugular; 13:36 Follow up: Response: No adverse reaction; RASS: Moderate sedation (-3) ap3 10:48 Drug: fentaNYL (PF) IVP 25 mcg IVP once Route: IVP; Site: right antecubital; aa5 13:35 Follow up: Response: No adverse reaction; RASS: Moderate sedation (-3) ap3 11:28 Drug: Albumin IVPB 25 grams 100 ml IVPB once; (Note: Albumin 25% concentration) from ap3 Parametric Dining orders Volume: 100 ml; Route: IVPB; Site: left antecubital; 12:30 Follow up: IV Status: Completed infusion ap3 Disposition: 05:11 Critical Care:. sp4 05:12 Chart complete. sp4 Disposition Summary: 12/18/24 11:26 Transfer Ordered Notes: Transfer Location: Other [facility] sp3 Reason: Higher level of care sp3 Condition: Stable(12/18/24 11:26) sp3 Problem: new(12/18/24 11:26) sp3 Symptoms: have worsened(12/18/24 11:26) sp3 Accepting Physician: TBD ICU team at [facility](12/18/24 13:37) ap3 Diagnosis - Fever, sepsis, altered mental status, respiratory distress, generalized weakness, sp3 lactic acidosis Forms: - Medication Reconciliation Form sp3 - SBAR form sp3 Critical care time excluding procedures: 05:11 Critical care time: Bedside Care: 46 minutes, Consultation: 12 minutes, Family sp4 Intervention: 12 minutes. Total time: 70 minutes Signatures: Dispatcher [employer] Mari Villeda RN RN aa5 Benedicto Patel PA-C PA-C cp Prokisch, Amanda, RN RN ap3 Telma Kaur RN RN lg3 Nathalie Lyons MD MD sp3 Diana Broussard RN RN vc1 Dutch Trinidad MD MD sp4 Corrections: (The following items were deleted from the chart) 01:18 01:18 BLOOD CULTURE*+BA.LAB.BRZ ordered. EDMS EDMS 01:18 01:18 LACTATE+C.LAB.BRZ ordered. EDMS EDMS 01:18 01:18 CREATINE PHOSPHOKINASE+C.LAB.BRZ ordered. EDMS EDMS 01:18 01:18 TEST, SERUM+SC.LAB.BRZ ordered. EDMS EDMS 01:19 01:19 Head Brain Wo Cont+CT.RAD.BRZ ordered. EDMS EDMS 01:21 01:21 URINE DRUG SCREEN+UC.LAB.BRZ ordered. EDMS EDMS 01:21 01:21 ETHANOL+C.LAB.BRZ ordered. EDMS EDMS 01:21 01:21 ACETAMINOPHEN+C.LAB.BRZ ordered. EDMS EDMS 01:21 01:21 SALICYLATE+C.LAB.BRZ ordered. EDMS EDMS 02:14 02:12 QUANTITATIVE HCG+C.LAB.BRZ ordered. EDMS EDMS 04:23 04:23 CSF Culture+BA.LAB.BRZ ordered. EDMS EDMS 04:23 04:23 FLUID CELL COUNT,BODY+H.LAB.BRZ ordered. EDMS EDMS 04:23 04:23 SPINAL FLUID PROFILE+LAB.LAB.BRZ ordered. EDMS EDMS 11:25 06:03 Inpatient Admission sp4 sp3 11:25 06:03 Kam Jackson sp4 sp3 11:25 06:03 Intensive Care Unit sp4 sp3 11:25 06:03 Guarded sp4 sp3 11:25 06:03 new sp4 sp3 11:25 06:03 have improved sp4 sp3 11:25 06:03 Standard sp4 sp3 11:25 06:03 sp4 sp3 11:25 06:03 Severe sepsis without septic shock sp4 sp3 11:25 06:03 End-stage renal disease on hemodialysis. sp4 sp3 11:25 06:03 Acute respiratory failure sp4 sp3 11:25 06:03 Acute nausea and vomiting sp4 sp3 12:04 12:04 Arterial Blood Gas+RC.LAB.BRZ ordered. EDMS EDMS 13:37 11:26 TBD ICU team at [facility] sp3 ap3
[2024-12-18 06:06] LABS: Fluid Total Cells Count ND
--- NOTE | 2024-12-18 07:10 | RAD REPORT ---
EXAMINATION: XR CHEST 1 VIEW INDICATION: 29 years old Female 1995 CVL left IJ. COMPARISON(S): XR Chest 12/18/2024 1:41:12 AM. TECHNIQUE: 1 view X-ray of the chest was performed. FINDINGS: Overlying defibrillator pads limit the exam. Support Devices: Continued intubation with stable endotracheal tube, nasogastric tube as well as tunn eled hemodialysis catheter. New left IJ central venous catheter tip SVC in good location without pneumothorax. Heart: Cardiac silhouette is normal in size. Mediastinum: Mediastinal contours are normal. Lungs: Increased central vascularity. Summary lower volumes from previous examination. Vascular eng orgement recognized. Osseous Structures: Visualized skeleton is normal. IMPRESSION: 1. Central vascular engorgement likely related to fluid overload in this patient on dialysis. Expected positions of endotracheal tube, central venous catheter and nasogastric tube as well as tunn eled hemodialysis catheter Electronically signed by: Roger Lucia MD 12/18/2024 05:45 AM CDT Due to temporary technical issues with the [employer] reporting system, reports are being gris d by the in-house radiologist without review as a courtesy to ensure prompt reporting. The interpreting radiologist is fully responsible for the content of the report. Transcribed Date/Time: 12/18/2024 7:10 AM
--- NOTE | 2024-12-18 07:12 | RAD REPORT ---
EXAM: XR Abdomen, 1 View CLINICAL HISTORY: The patient is 29 years old and is Female; OGTUBE TECHNIQUE: Frontal supine view of the abdomen/pelvis. COMPARISON: No relevant prior studies available. FINDINGS: Gastrointestinal tract: Unremarkable. No dilation. Bones/joints: Unremarkable. No acute fracture. Tubes, lines and devices: Nasogastric tube coursing below the diaphragm and overlying the upper a bdomen. IMPRESSION: No acute findings. Electronically signed by: Tomasz Restrepo MD 12/18/2024 04:50 AM CDT RP 8 Due to temporary technical issues with the PACS/[employer] reporting system, reports are being gris d by the in-house radiologist without review as a courtesy to ensure prompt reporting. The interpreting radiologist is fully responsible for the content of the report. Transcribed Date/Time: 12/18/2024 7:12 AM
--- NOTE | 2024-12-18 07:13 | RAD REPORT ---
EXAM: XR Chest, 1 View CLINICAL HISTORY: The patient is 29 years old and is Female; CHEST PAIN TECHNIQUE: Frontal view of the chest. COMPARISON: No relevant prior studies available. FINDINGS: Lungs: Mildly prominent interstitial markings. No consolidation. Pleural space: Unremarkable. No pneumothorax. Heart: Unremarkable. Mediastinum: Unremarkable. Normal mediastinal contour. Bones/joints: No acute findings. Tubes, lines and devices: Right central venous catheter with tip in the SVC. Nasogastric tube coursing below the diaphragm and overlying the left upper quadrant. Endotracheal tube with tip 3.7 cm above the tom. IMPRESSION: No acute findings in the chest. Electronically signed by: Tomasz Restrepo MD 12/18/2024 04:[address] YOYOT RP 8 Due to temporary technical issues with the [employer]ACS/[employer] reporting system, reports are being gris d by the in-house radiologist without review as a courtesy to ensure prompt reporting. The interpreting radiologist is fully responsible for the content of the report. Transcribed Date/Time: 12/18/2024 7:12 AM
--- NOTE | 2024-12-18 08:16 | RAD REPORT ---
EXAMINATION: US Pelvis Complete CLINICAL INDICATION: Female 29 years old.[facility] unknown preg positive Bed Name: 3 TECHNIQUE: Real-time ultrasonography of the pelvis was performed transabdominally. Color and spectral Doppler evaluation of the ovaries was performed. COMPARISON: No prior exam. FINDINGS: UTERUS AND CERVIX: The uterus measures 7.6 cm in length. The uterus is retroflexed with some interpos ed bowel loops anteriorly, somewhat limiting evaluation. Mild engorgement of the endometrial venous spaces.. No focal masses seen. No evidence of a gestational sac. The endometrium is normal, 0.5 cm in thickness, without abnormal content or a focal lesion. The ovaries were not visualized, due to overshadowing loops of bowel in the pelvis. FREE FLUID: No free fluid. IMPRESSION: No sonographic evidence of a gestational sac or retained products of conception. Retroflexed uterus w ith some interposed bowel loops anteriorly, somewhat limiting evaluation. Nonvisualization of ovaries, which also limits evaluation.
[2024-12-18] MEDS ORDERED: FENTANYL CITR 100 MCG/2 ML IV PRN (08:28)
[2024-12-18] MEDS ORDERED: Meropenem 500 MG in NA CHLORIDE 0.9% 100 ML IV SCH (10:46)
[2024-12-18] MEDS ORDERED: MAGNESIUM SULFATE 1 gm IVPB 1 GM/100 ML BAG IV ONE (10:46)
[2024-12-18] MEDS ORDERED: CALCIUM GLUCONATE 1 GM IVPB 1 GM/50 ML BAG IV ONE (10:46)
[2024-12-18] MEDS ORDERED: NA CHLORIDE 0.9% 250 ML IV ONE (10:47)
[2024-12-18] MEDS ORDERED: FENTANYL CITR 100 MCG/2 ML IV ONE (10:48)
--- NOTE | 2024-12-18 10:55 | P.PN ---
Brief Renal note ESRD HHD pt under the care of Dr. Law. Overnight events and ER care reviewed in detail, pt still with low grade temps, requiring pressor support while intubated and medically sedated. Concern for CRBSI among the ddx for her presentation, s/p Vanc LD, will need to ensure adeq gram neg coverage. Discussed case with Dr. Omer, no emergent indication for BINGO CALLER at this time, and need to clarify whether admitted here or tranferred. Acidotic on presentation but repeat LA lower, s/p bicarb pushes. Current NS IVF running, will stop when bag finishes and would monitor hemodynamics closely and bolus colloids/crystalloids as indicated.
[2024-12-18] MEDS ORDERED: FENTANYL CITR 100 MCG/2 ML ONE (10:57)
[2024-12-18] MEDS ORDERED: ALBUMIN HUMAN 25% 100 ML IV ONE (11:00)
[2024-12-18] MEDS ORDERED: NOREPINEPHRINE 4 MG in D5W 250 ML IV SCH (11:00)
[2024-12-18 12:29] LABS: Arterial Blood Carboxyhemoglob 0.6 % (0.0-1.5); Blood Gas Inspired Oxygen 30.0 %; Blood Gas Oxyhemoglobin 97.3 % (94.0-97.0); Blood O2 Saturation 98.4 % (92.0-98.5)
[2024-12-18 14:20] VITALS: TEMP 100.5
[2024-12-18 14:24] VITALS: BP 129/90
== END 2024-12-18 13:37 | disposition short-term general hospital (02) ==
LOC: ER 00:59
DX: R50.9 Fever, unspecified (principal); A41.9 Sepsis, unspecified organism; R06.03 Acute respiratory distress; R41.82 Altered mental status, unspecified; R53.1 Weakness; E87.20 Acidosis, unspecified; N18.6 End stage renal disease; Z99.2 Dependence on renal dialysis; Z11.52 Encounter for screening for COVID-19
CPT/HCPCS: 93005; 87040 ×2; 87070; 85025; 81001; 80048; 36415; 89050 ×2; 83735; 82550; 87205 ×4; 84703; 84157; 85610; 82945; 80076; 83605 ×2; 84702; 84443; 84484; 84439; 83690; 83880; 80307; 70450; 71250; 74176; 74018; 71045 ×2; 76856; 82805 ×3; 31500; 51702; 62270; 99291; 99292; 36556; 80143; 80179; 82077; 87428; 36600 ×2; 94002; J2704 ×2; J2250 ×2; P9047 ×2; J2003; J3010 ×2; J3370; J2405; J7040; J7030